=== PATIENT | male | born 1990 ===

== ENCOUNTER 2018-08-14 03:23 | Emergency (ER) | payer BC ==
[2018-08-14 04:40] VITALS: BP 117/65; PULSE 69; RESP 18; TEMP 97.4; O2SAT 99
[2018-08-14] MEDS ORDERED: Lidocaine 1% w Epi 1:100,000 Inj ONE (04:50)
--- NOTE | 2018-08-14 05:45 | ED PDOC ---
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 Offers no other complaints. Tetanus UTD. PMD: Dr Landaverde Past Medical History Reviewed: Historical Data, Nursing Documentation, Vital Signs Vital Signs: Last Vital Signs Temp 97.4 F L 08/14/18 04:31 Pulse 69 08/14/18 04:31 Resp 18 08/14/18 04:31 BP 117/65 08/14/18 04:31 Pulse Ox 99 08/14/18 05:55 - Medical History PMH: No Chronic Diseases - Surgical History Surgical History: No Surg Hx - Family History Family History: States: Unknown Family Hx - Home Medications Home Medications: Ambulatory Orders Medication Instructions Recorded Amoxicillin/Clavulanate [Augmentin 1 tab PO BID 7 Days #14 tab 08/14/18 875 MG-125 MG] - Allergies Allergies/Adverse Reactions: Allergies Allergy/AdvReac Type Severity Reaction Status Date / Time No Known Allergies Allergy Verified 08/14/18 04:26 Review of Systems ROS Statement: Except As Marked, All Systems Reviewed And Found Negative Skin: Positive for: Other (3 lacerations to upper lip) Physical Exam - Reviewed Nursing Documentation Reviewed: Yes Vital Signs Reviewed: Yes - Physical Exam Appears: Positive for: Non-toxic, No Acute Distress Head Exam: Positive for: ATRAUMATIC, NORMAL INSPECTION, NORMOCEPHALIC Skin: Positive for: Normal Color (3 non bleeding lacerations to upper lip; 1 cm , 1 cm, 1.5 cm; abrasions to upper and lower lips; Not through and through lacerations), Warm, Dry Eye Exam: Positive for: EOMI, Normal appearance, PERRL Neck: Positive for: Normal, Painless ROM, Supple Cardiovascular/Chest: Positive for: Regular Rate, Rhythm. Negative for: Murmur Respiratory: Positive for: Normal Breath Sounds. Negative for: Respiratory Distress Gastrointestinal/Abdominal: Positive for: Normal Exam, Soft. Negative for: Tenderness Extremity: Positive for: Normal ROM. Negative for: Deformity Neurologic/Psych: Positive for: Alert, Oriented (x 3). Negative for: Motor/ Sensory Deficits - ECG O2 Sat by Pulse Oximetry: 99 (RA) Pulse Ox Interpretation: Normal Medical Decision Making Medical Decision Makin:53 --Patient was treated for a dog bite. Wound was repaired. Proper wound care instructions given and discussed need to follow up. Scribe Attestation: Documented by Bijal Fish acting as a scribe for Kane Pina MD Provider Scribe Attestation: All medical record entries made by the Scribe were at my direction and personally dictated by me. I have reviewed the chart and agree that the record accurately reflects my personal performance of the history, physical exam, medical decision making, and the department course for this patient. I have also personally directed, reviewed, and agree with the discharge instructions and disposition. Disposition - Clinical Impression Clinical Impression: Dog bite - Patient ED Disposition Is Patient to be Admitted: No - Disposition Referrals: Pasquale Landaverde MD [Family Provider] - Disposition: Routine/Home Disposition Time: 05:53 Condition: STABLE Prescriptions: Amoxicillin/Clavulanate [Augmentin 875 MG-125 MG] 1 tab PO BID 7 Days #14 tab Instructions: Laceration Repair, Animal Bites (DC), Wound Care Forms: Paperless Transaction Management ([place]) Print Language: ARMENIAN Procedure: Wound Repair - Performed by Performed by: Attending Physician - Indications Indication(s):: Laceration - Location Location:: Lip Dimensions Length cm: 1 cm, 1cm and 1.5 cm - Anesthetic Technique Local/Regional Anesthetic:: Lidocaine 1% w/epi - Irrigated Irrigated with ml of normal saline: 150 - Complexity Complexity:: Intermediate (2 layer) - Wound repair method Sutures:: # (10), Size (6.0) - Patient tolerated procedure Patient Tolerated Procedure:: Well
== END 2018-08-14 06:00 | disposition home or self-care (01) ==
LOC: H.ER 03:23
DX: S01.551A Open bite of lip, initial encounter (principal); W54.0XXA Bitten by dog, initial encounter; Y92.89 Other specified places as the place of occurrence of the external cause